=== PATIENT | male | born 1940 | race Caucasian/White ===

== ENCOUNTER 2022-02-14 14:34 | Inpatient (IN) ==
[2022-02-14] MEDS ORDERED: *HR* OxyCODONE Immed Rel 5 MG TABLET PO PRN (17:41)
[2022-02-14] MEDS ORDERED: Triamcinolone Acet 0.1% CRM 15 GM TUBE TP PRN (17:41)
[2022-02-14] MEDS ORDERED: Morphine Sulfate Oral CONC 10 MG/0.5 ML ORAL.SYG SL PRN (17:41)
[2022-02-14] MEDS ORDERED: *HR* LORazepam Oral Conc 2 MG/ML SL PRN (17:41)
[2022-02-14] MEDS ORDERED: Haloperidol Oral Conc 10 MG/5 ML UDC PO PRN (17:41)
[2022-02-14] MEDS ORDERED: Acetaminophen 650 MG RECTAL SUPP RC PRN (17:45)
[2022-02-14] MEDS ORDERED: Hyoscyamine SL 0.125 MG TAB.SUBL SL PRN (17:47)
[2022-02-14] MEDS: Budesonide/Formoterol 80/4.5 1 PUFF INH IH SCH (19:38)
[2022-02-14] MEDS: Lactulose Oral Soln 20 GM/30 ML UDC PO SCH (20:27)
[2022-02-15] MEDS: Insulin DETEMIR 100 UNIT/ML X5UNITS SUBQ SCH (09:01)
[2022-02-15] MEDS: Furosemide 20 MG TABLET PO SCH (09:55)
[2022-02-15] MEDS: Aspirin Enteric Coated 81 MG Tablet PO SCH (09:55)
[2022-02-15] MEDS: Spironolactone 25 MG TABLET PO SCH (09:55)
[2022-02-15] MEDS: Lactulose Oral Soln 20 GM/30 ML UDC PO SCH ×2 (09:55→20:12)
[2022-02-15] MEDS: Budesonide/Formoterol 80/4.5 1 PUFF INH IH SCH ×2 (10:17→19:39)
[2022-02-16] MEDS: Budesonide/Formoterol 80/4.5 1 PUFF INH IH SCH (07:22)
[2022-02-16] MEDS: Insulin DETEMIR 100 UNIT/ML X5UNITS SUBQ SCH (08:18)
[2022-02-16] MEDS: Aspirin Enteric Coated 81 MG Tablet PO SCH (09:01)
[2022-02-16] MEDS: Spironolactone 25 MG TABLET PO SCH (09:01)
[2022-02-16] MEDS: Lactulose Oral Soln 20 GM/30 ML UDC PO SCH (09:01)
[2022-02-16] MEDS: Furosemide 20 MG TABLET PO SCH (09:02)
[2022-02-16 19:30] VITALS: BP 116/55; PULSE 107; RESP 16; TEMP 99.1; O2SAT 90
== END 2022-02-16 19:30 | disposition hospice, home (50) | DRG 951 ==
LOC: INPGRE 17:16
PROVIDERS: ADMIT Nurse Practitioner; ATTEND Nurse Practitioner

== ENCOUNTER 2022-02-27 15:11 | Inpatient (IN) ==
[2022-02-27] MEDS ORDERED: *HR* OxyCODONE Immed Rel 5 MG TABLET PO PRN (18:45)
[2022-02-27] MEDS ORDERED: Triamcinolone Acet 0.1% CRM 15 GM TUBE TP PRN (18:59)
[2022-02-27] MEDS: Budesonide/Formoterol 80/4.5 1 PUFF INH IH SCH ×2 (21:47→21:59)
[2022-02-27] MEDS: Lactulose Oral Soln 20 GM/30 ML UDC PO SCH (21:49)
[2022-02-28] MEDS: Insulin DETEMIR 100 UNIT/ML X5UNITS SUBQ SCH (09:27)
[2022-02-28] MEDS: Spironolactone 25 MG TABLET PO SCH (09:27)
[2022-02-28] MEDS: Furosemide 20 MG TABLET PO SCH (09:28)
[2022-02-28] MEDS: Lactulose Oral Soln 20 GM/30 ML UDC PO SCH ×2 (09:28→23:23)
[2022-02-28] MEDS: Aspirin Enteric Coated 81 MG Tablet PO SCH (09:28)
[2022-02-28] MEDS: Budesonide/Formoterol 80/4.5 1 PUFF INH IH SCH ×2 (10:09→20:56)
[2022-02-28] MEDS: Haloperidol Oral Conc 10 MG/5 ML UDC PO PRN (17:06)
[2022-03-01] MEDS: *HR* LORazepam Oral Conc 2 MG/ML SL PRN (06:52)
[2022-03-01] MEDS: Insulin DETEMIR 100 UNIT/ML X5UNITS SUBQ SCH (07:27)
[2022-03-01] MEDS: Budesonide/Formoterol 80/4.5 1 PUFF INH IH SCH (07:58)
[2022-03-01] MEDS: Spironolactone 25 MG TABLET PO SCH (08:00)
[2022-03-01] MEDS: Aspirin Enteric Coated 81 MG Tablet PO SCH (08:00)
[2022-03-01] MEDS: Furosemide 20 MG TABLET PO SCH (08:01)
[2022-03-01] MEDS: Lactulose Oral Soln 20 GM/30 ML UDC PO SCH ×2 (08:01→20:12)
[2022-03-01] MEDS: Haloperidol Oral Conc 10 MG/5 ML UDC PO PRN ×2 (13:30→21:07)
[2022-03-01] MEDS: Morphine Sulfate Oral CONC 10 MG/0.5 ML ORAL.SYG SL PRN ×2 (15:38→20:10)
[2022-03-01 18:48] VITALS: O2SAT 97
[2022-03-02] MEDS: *HR* LORazepam Oral Conc 2 MG/ML SL PRN ×2 (00:16→09:21)
[2022-03-02] MEDS: Morphine Sulfate Oral CONC 10 MG/0.5 ML ORAL.SYG SL PRN ×2 (00:42→09:22)
[2022-03-02] MEDS: Haloperidol Oral Conc 10 MG/5 ML UDC PO PRN (06:19)
[2022-03-02 06:55] VITALS: BP 101/52; PULSE 111; RESP 24; TEMP 97.2
[2022-03-02] MEDS: Lactulose Oral Soln 20 GM/30 ML UDC PO SCH (09:27)
[2022-03-02] MEDS: Aspirin Enteric Coated 81 MG Tablet PO SCH (09:27)
[2022-03-02] MEDS: Furosemide 20 MG TABLET PO SCH (09:27)
[2022-03-02] MEDS: Insulin DETEMIR 100 UNIT/ML X5UNITS SUBQ SCH (09:27)
[2022-03-02] MEDS: Spironolactone 25 MG TABLET PO SCH (09:28)
[2022-03-02] MEDS ORDERED: Artificial Tears SOLN 15 ML BOTTLE BOTH EYES SCH (09:45)
== END 2022-03-02 14:20 | disposition expired | DRG 951 ==
LOC: INPGRE 18:00
PROVIDERS: ADMIT Family Medicine; ATTEND Family Medicine